=== PATIENT | male | born 2000 | race Two or more races ===

== ENCOUNTER 2021-02-11 21:04 | Emergency (ER) | payer MEDICAID, OTHER ==
[~2021-02-11] VITALS: Ht 180.3 cm; Wt 136.1 kg
[2021-02-12 02:04] VITALS: BP 130/79
[2021-02-12] MEDS ORDERED: KETOROLAC TROMETH 60MG/2ML VIAL IM ONE (02:15)
[2021-02-12] MEDS ORDERED: IBUPROFEN 800 MG TAB PO ONE (02:45)
== END 2021-02-12 03:30 | disposition home or self-care (01) ==
LOC: ER 21:09
DX: S46.812A Strain of other muscles, fascia and tendons at shoulder and upper arm level, left arm, initial encounter (principal); S09.8XXA Other specified injuries of head, initial encounter; J45.909 Unspecified asthma, uncomplicated; Z04.2 Encounter for examination and observation following work accident; W22.8XXA Striking against or struck by other objects, initial encounter; Y93.89 Activity, other specified; Y92.89 Other specified places as the place of occurrence of the external cause; Y99.0 Civilian activity done for income or pay
CPT/HCPCS: 73030; J1885